=== PATIENT | male | born 1945 | race Caucasian/White ===

== ENCOUNTER 2025-01-09 08:15 | Outpatient (CLI) | payer MEDICARE ==
[2025-01-09 09:05] LABS: Estimated GFR - POC 56.0
== END 2025-01-09 08:16 | disposition home or self-care (01) ==
LOC: CSHMRI 08:15
PROVIDERS: ATTEND Psychiatry & Neurology Neurology
DX: R42 Dizziness and giddiness (principal); M48.02 Spinal stenosis, cervical region
CPT/HCPCS: 36415; 70553; 72141; 76376; 82565